=== PATIENT | female | born 1945 | race Two or more races ===

== ENCOUNTER 2016-03-30 19:56 | Emergency (ER) | payer OTHER ==
[~2016-03-30] VITALS: Ht 160 cm; Wt 52.2 kg
[2016-03-30 20:53] VITALS: BP 187/86
[2016-03-30] MEDS ORDERED: KETOROLAC TROMETH 30 MG/ML 1ML VIAL IM ONE (21:00)
== END 2016-03-30 21:22 | disposition home or self-care (01) ==
LOC: ER 20:02 → EDBD 20:02 → ER 21:22
DX: S46.911A Strain of unspecified muscle, fascia and tendon at shoulder and upper arm level, right arm, initial encounter (principal); W17.2XXA Fall into hole, initial encounter; Y93.01 Activity, walking, marching and hiking; Y99.8 Other external cause status; Y92.89 Other specified places as the place of occurrence of the external cause
CPT/HCPCS: 73030; 96372; 99284; J1885

== ENCOUNTER 2019-08-04 14:13 | Emergency (ER) | payer OTHER ==
[~2019-08-04] VITALS: Ht 157.5 cm; Wt 77.1 kg
[2019-08-04 15:07] VITALS: BP 168/84
== END 2019-08-04 15:12 | disposition home or self-care (01) ==
LOC: EDBD 14:13 → ER 14:13
DX: S43.005A Unspecified dislocation of left shoulder joint, initial encounter (principal); I10 Essential (primary) hypertension; Z90.49 Acquired absence of other specified parts of digestive tract; W18.39XA Other fall on same level, initial encounter; Y93.89 Activity, other specified; Y92.89 Other specified places as the place of occurrence of the external cause; Y99.8 Other external cause status
CPT/HCPCS: 23650; 73030

== ENCOUNTER 2019-09-21 20:00 | Inpatient (IN) | payer OTHER, MEDICAID ==
[~2019-09-21] VITALS: Ht 157.5 cm; Wt 63.0 kg
[2019-09-21] MEDS ORDERED: diphenhdrAMINE HCL 50 MG/1 ML VL IV ONE (23:15)
[2019-09-21] MEDS ORDERED: HALOPERIDOL LACTATE 5 MG/ML INJ VIAL IM ONE (23:15)
[2019-09-21] MEDS ORDERED: LORazepam 2MG/ML-1ML VIAL IV ONE (23:15)
[2019-09-21 23:48] LABS: Urine Bacteria FEW /hpf (None Seen); Urine Blood Negative /uL (Negative); Urine Specific Gravity 1.005 (1.001-1.035); Urine WBC 1 /hpf (0 - 5)
[2019-09-22 00:05] LABS: Basophils # (auto) 0 10 ^3/uL (0-0.2); Basophils % (auto) 0.5 % (0.0-2.0); Eosinophils # (auto) 0 10 ^3/uL (0-0.8); Eosinophils % (auto) 0.1 % (0.0-7.0); Hematocrit 41.3 % (36.0-46.0); Hemoglobin 13.9 g/dL (12.2-16.2); Lymphocytes # (auto) 1.6 10 ^3/uL (0.4-5.4); Lymphocytes % (auto) 22.6 % (10.0-50.0); Mean Corpuscular Hemoglobin 30.5 pg (28.0-32.0); Mean Corpuscular Hgb Conc. 33.7 g/dL (32.0-36.0); Mean Corpuscular Volume 90.4 fL (80.0-100.0); Monocytes # (auto) 0.6 10 ^3/uL (0-1.3); Monocytes % (auto) 8.9 % (0.0-12.0); Neutrophils # (auto) 4.8 10 ^3/uL (1.6-8.6); Neutrophils % (auto) 67.9 % (37.0-80.0); Nucleated Red Blood Cells % 0.2 %; Platelet Count (auto) 248 10^3/uL (140-450); Red Blood Cells 4.57 10^6/uL (4.0-5.20); Red Cell Distribution Width 13.7 % (11.8-14.3)
[2019-09-22 00:17] LABS: Alanine Aminotransferase 24 U/L (13-56); Albumin 3.8 g/dL (3.4-5.0); Anion Gap 7 (5-15); Aspartate Aminotransferase 20 U/L (15-37); Blood Urea Nitrogen 15 mg/dL (7-18); Calcium 8.7 mg/dL (8.5-10.1); Carbon Dioxide 24 mmol/L (21-32); Chloride 111 mmol/L (98-107); GFR African American 74 mL/min; GFR Non-African American 62 mL/min; Glucose 107 mg/dL (74-106); Potassium 3.7 mmol/L (3.5-5.1); Sodium 142 mmol/L (136-145)
[2019-09-22 00:21] LABS: Alcohol, Urine < 3.0 mg/dL (0-10); Amphetamine Screen, Urine NEGATIVE (NEGATIVE); Barbiturate Scree,Urine NEGATIVE (NEGATIVE); Benzodiazephine Screen, Urine NEGATIVE (NEGATIVE); Cannabinoid Screen, Urine NEGATIVE (NEGATIVE); Cocaine Screen, Urine NEGATIVE (NEGATIVE); Opiate Scree,Urine NEGATIVE (NEGATIVE); Phencyclidine Screen, Urine NEGATIVE (NEGATIVE)
[2019-09-22 00:22] LABS: Alkaline Phosphatase 84 U/L (45-117); Bilirubin, Total 1.2 mg/dL (0.2-1.0); Total Protein 7.7 g/dL (6.4-8.2)
[2019-09-22] MEDS ORDERED: CIPROFLOXACIN HCL 500 MG TAB PO ONE (01:45)
[2019-09-22] MEDS ORDERED: ONDANSETRON HCL 4 MG/2 ML VIAL IV PRN (02:15)
[2019-09-22] MEDS ORDERED: DOCUSATE SOD 100 MG CAP PO PRN (02:15)
[2019-09-22] MEDS ORDERED: ACETAMINOPHEN 325 MG TAB PO PRN (02:15)
[2019-09-22] MEDS ORDERED: MEM5T PO (10:00)
[2019-09-22] MEDS ORDERED: ARIP1TAB7 PO (10:00)
[2019-09-22] MEDS ORDERED: QUET100T46 PO (10:00)
[2019-09-22] MEDS: cefTRIAXone 1GM/50ML D5W 50 ML IV SCH (10:00)
[2019-09-22] MEDS ORDERED: DONE10TA40 PO (10:00)
[2019-09-22] MEDS ORDERED: ALPR0.25 PO (10:00)
[2019-09-22] MEDS: HALOPERIDOL LACTATE 5 MG/ML INJ VIAL IM PRN (12:40)
[2019-09-22] MEDS ORDERED: hydrALAZINE HCL 20 MG/ML VL IV PRN (13:15)
[2019-09-22] MEDS ORDERED: QUEtiapine FUMARATE 25 MG TAB PO ONE (14:00)
[2019-09-22] MEDS: ALPRAZolam 0.25 MG TAB PO PRN (14:05)
--- NOTE | 2019-09-22 14:43 | NUR ---
Pt Arrived on Unit Pt arrived on unit from ED. Pt is a/ox2-3; able to hold a conversation and answer questions but is generally confused. Sitter is present in room at this time for safety. Safety measures initiated with call light within reach, bed in lowest position and side rails up. Will continue to monitor.
[2019-09-22 15:13] VITALS: BP 147/92
[2019-09-22] MEDS ORDERED: LISI-646 PO (15:45)
[2019-09-22 22:00] VITALS: BP 129/69
[2019-09-22] MEDS ORDERED: QUEtiapine FUMARATE 25 MG TAB PO SCH (22:00)
[2019-09-22] MEDS: DONEPEZIL HYDROCHLORIDE 5 MG TAB PO SCH (22:50)
--- NOTE | 2019-09-23 00:22 | NUR ---
Opening Shift Note Assumed care of patient from dayshift, awake and alert oriented x2, to person and time of day. No S/S of distress/SOB noted. Instructed on POC and to call for assist PRN, pt also has 1:1 at bedside. Bed is in lowest locked position with bed rails up x2 and call light is within reach of the patient. sill continue to monitor pt t/o shift.
[2019-09-23 00:51] LABS: Folate (Folic Acid) > 24.00 ng/mL (5.38-24)
[2019-09-23 05:00] VITALS: BP 126/74
--- NOTE | 2019-09-23 06:17 | NUR ---
Opening Shift Note Assumed care of patient, awake and alert oriented x2, to person and time of day. No S/S of distress/SOB noted. Instructed on POC and to call for assist PRN, pt also has 1:1 at bedside. Bed is in lowest locked position with bed rails up x2 and call light is within reach of the patient. sill continue to monitor pt t/o shift. Addendum: 09/23/19 at 0610 by PETER LOVE RN RN this note was meant to be for 09/22/19 at 1930
--- NOTE | 2019-09-23 07:55 | NUR ---
Opening Note Assumed pt care from MAIKEL RN. Pt is a/ox3-4; able to answer all questions and follow commands, mild periods of confusion noted. Pt is currently sitting upright in bed with no complaints at this time. Sitter is present in room. Discussed POC with pt. Safety measures maintained with call light within reach, bed in lowest position and side rails up. Will continue to monitor for changes.
[2019-09-23 09:00] VITALS: BP 130/77
[2019-09-23] MEDS: cefTRIAXone 1GM/50ML D5W 50 ML IV SCH (09:01)
[2019-09-23] MEDS: MEMANTINE HCL 5 MG TAB PO SCH (09:02)
[2019-09-23] MEDS ORDERED: ABILIFY 20 MG PO SCH (10:00)
--- NOTE | 2019-09-23 11:56 | NUR ---
Dr Tafoya at Bedside MD to see pt. Discussed POC. Requests that urine be collected. Provided pt with specimen cup. Will continue to monitor.
[2019-09-23 13:00] VITALS: BP 158/92
--- NOTE | 2019-09-23 15:40 | NUR ---
Elevated BP Reported Elevated BP reported; 178/111 with a HR 90. Provided appropriate PRNs. Will continue to monitor and reassess.
[2019-09-23 15:49] VITALS: BP 178/111
[2019-09-23 16:37] VITALS: BP 145/89
[2019-09-23] MEDS ORDERED: MIRTAZAPINE 30 MG TAB PO SCH ×2 (22:00)
[2019-09-23] MEDS: DONEPEZIL HYDROCHLORIDE 5 MG TAB PO SCH (22:15)
[2019-09-24] MEDS: ALPRAZolam 0.25 MG TAB PO PRN ×2 (01:37→16:19)
[2019-09-24 05:00] VITALS: BP 134/77
[2019-09-24] MEDS: HALOPERIDOL LACTATE 5 MG/ML INJ VIAL IM PRN ×2 (09:30→19:00)
[2019-09-24] MEDS: cefTRIAXone 1GM/50ML D5W 50 ML IV SCH (10:15)
[2019-09-24] MEDS: MEMANTINE HCL 5 MG TAB PO SCH ×2 (10:15→21:30)
--- NOTE | 2019-09-24 11:05 | NUR ---
Urine bacterial culture collected and sent to lab as per order
[2019-09-24 11:30] VITALS: BP 149/97
[2019-09-24 12:30] VITALS: BP 141/89
[2019-09-24 13:00] VITALS: BP 141/89
--- NOTE | 2019-09-24 16:20 | NUR ---
assessment Patient is a 74 year old female who is confused. Per patients daughter Mago prior to admission patient lived home with her and functioned with her assistance. Patients PCP is Dr Patrick in [place]. Patient has no need for DME. Patient is on service with [facility]. Patient may need a resumption order on discharge. Patient has a social security income of 800.00 per month. Patient has an advanced directive and Mago is POA. Per Mago patient will return home with her on discharge. I will continue to monitor and follow up as appropriate. Mago verbalized understanding and agreed to discharge plan home. Addendum: 09/24/19 at 1624 by Gisel SUAREZ Amended: Links added.
[2019-09-24 17:00] VITALS: BP_SYST 141; BP_SYST 142; BP_DIAS 87; BP_DIAS 89
[2019-09-24] MEDS: MIRTAZAPINE 30 MG TAB PO SCH ×2 (21:29→22:00)
[2019-09-24] MEDS: DONEPEZIL HYDROCHLORIDE 5 MG TAB PO SCH (21:30)
[2019-09-24 22:00] VITALS: BP 139/87
[2019-09-25 08:47] VITALS: BP 108/76
[2019-09-25] MEDS: cefTRIAXone 1GM/50ML D5W 50 ML IV SCH (10:07)
--- NOTE | 2019-09-25 12:14 | NUR ---
Est energy needs 4471-1094 kcal (25-30 kcal/kg 63kg) est protein needs 63-69g (1-1.1g/kg BW, r/t low ammonia, possible wt loss) will reassess prn Addendum: 09/25/19 at [address] Amended: Links added.
[2019-09-25 13:00] VITALS: BP 144/82
[2019-09-25 16:51] VITALS: BP 158/81
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
[2019-09-25 22:00] VITALS: BP 162/93
[2019-09-25] MEDS ORDERED: QUEtiapine FUMARATE 25 MG TAB PO SCH (22:00)
[2019-09-25] MEDS: DONEPEZIL HYDROCHLORIDE 5 MG TAB PO SCH (22:24)
[2019-09-25 22:37] VITALS: BP 166/91
[2019-09-26 05:07] VITALS: BP 150/80
--- NOTE | 2019-09-26 07:20 | NUR ---
OPENING NOTE: Patient sitting in bed. No S/S of distress or pain at this time. Bed in lowest locked position, side rails up x2, call light within reach. Sitter at bedside for patient safety. Patient updated on POC. Will continue to monitor q1hr and prn.
[2019-09-26 09:00] VITALS: BP 156/86
[2019-09-26] MEDS: MEMANTINE HCL 5 MG TAB PO SCH (09:12)
[2019-09-26] MEDS: cefTRIAXone 1GM/50ML D5W 50 ML IV SCH (09:12)
[2019-09-26 13:27] VITALS: BP 158/86
--- NOTE | 2019-09-26 14:19 | NUR ---
Discharge instructions given as ordered. Encourage to follow up with PMD as instructed. All questions and concerns addressed. Patient verbalized understanding. Medication reconciliation form completed and copy given to patient. Patient had no IV. Patient ambulated to vehicle with all personal belongings, accompanied by staff and family member. Daughter Mago signed discharge paper. No distress noted at time of departure.
== END 2019-09-26 14:19 | disposition home or self-care (01) | DRG 884 ==
LOC: EDBD 20:00 → ER 20:02 → OVERFLOW 20:03 → WEST WING 09-22 15:50
PROVIDERS: ADMIT Hospitalist; ATTEND Internal Medicine
DX: F03.91 Unspecified dementia, unspecified severity, with behavioral disturbance (principal); G93.41 Metabolic encephalopathy; N39.0 Urinary tract infection, site not specified; I10 Essential (primary) hypertension; M19.012 Primary osteoarthritis, left shoulder; M75.102 Unspecified rotator cuff tear or rupture of left shoulder, not specified as traumatic; Z90.49 Acquired absence of other specified parts of digestive tract
CPT/HCPCS: 36415; 70450; 73221; 80053; 80307; 81001; 82140; 82247; 82306; 82607; 82746; 84443; 84484; 85025; 87086; 96365; 96372; 96375; G0378; J0696